=== PATIENT | female | born 1935 | race Hispanic/Latino ===

== ENCOUNTER 2016-11-25 16:49 | Inpatient (IN) | payer OTHER ==
[~2016-11-25] VITALS: Ht 149.9 cm; Wt 55.9 kg
[~2016-11-25 16:49] MED LIST: ADULT LOW DOSE81 M1 PO; ALBUTEROL SULF8.5 GM IH; ALENDRONATE SOD70 MG PO; AMLODIPINE BESYL5 MG PO; APRESOLINE25 MG PO; ASPIR-LOW81 MG PO; ASPIR-TRIN325 M1 PO; AUGMENTIN875 MG PO; BENZONATATE200 MG PO; CALCIUM 600 +1 EAC1 PO; CALCIUM 600 MG1 EACH PO; CALTRATE 600 +1 EACH PO; CATAPRES0.2 MG PO; CHILD ASPIRIN81 M1 PO; CINNAMON500 MG PO; CIPROFLOXACIN500 M1 PO; CLONIDINE HCL0.1 MG PO; COLACE50 MG PO; CRESTOR40 MG; CRESTOR40 MG PO; CYCLOBENZAPRINE10 MG PO; DOXYCYCLINE HY100 MG PO; FLEXERIL10 MG PO; FLEXERIL5 MG PO; FLONASE16 G1 BOTH NARES; FLOVENT 44120 INHALA IH; FLUTICASONE PRO16 GM BOTH NARES; FOSAMAX70 MG PO; GLIPIZIDE XL10 MG PO; GLUCOPHAGE1000 MG PO; GLUCOTROL XL10 MG PO; GLUCOTROL10 MG PO; HYDROCHLOROTH12.5 M3 PO; HYDROCODON-ACE1 EACH PO; INDERAL LA80 MG PO; LEVOTHYROXINE100 MCG PO; LEVOTHYROXINE137 MCG PO; LISINOPRIL40 MG PO; LOPRESSOR25 MG PO; MACRODANTIN100 MG PO; METFORMIN HCL1000 M1 PO; METOPROLOL SUCC25 MG PO; MOMETASONE FURO17 GM BOTH NARES; MULTI-DAY VITA1 EACH PO; NEURONTIN300 MG PO; NIFEDIPINE ER30 MG PO; NORCO 5/3251 TABLET PO; NORTRIPTYLINE H10 MG PO; NORVASC10 M1 PO; NORVASC10 MG PO; OLOPATADINE HCL5 ML BOTH EYES; OXYCODONE HCL5 MG PO; PATANOL OP100 DROP/5 BOTH EYES; PERCOCET 5/31 TABLET PO; PREDNISONE10 MG PO; PRINIVIL20 MG PO; PRINIVIL5 MG PO; PROAIR HFA8.5 GM IH; REQUIP0.25 MG PO; REQUIP1 MG PO; RESTASIS 01 DROP/0.4 BOTH EYES; ROPINIROLE HC0.25 MG PO; ROPINIROLE HCL1 MG PO; SENNA8.6 MG PO; SENOKOT,SENN1 TABLE1; SPECTRAVITE SE1 EACH PO; SYMBICORT60 INHALA1 IH; SYNTHROID125 MCG PO; SYNTHROID137 MCG PO; TESSALON PERLE100 MG PO; TESSALON200 MG PO; Toprol XL PO; VESICARE10 MG PO; VESICARE5 MG PO; VIBRAMYCIN100 MG PO; VICODIN,LORT1 TABLET PO; VITAMIN D2400 UNIT PO; VITAMIN D31000 UNI2; VITAMIN D31000 UNI2 PO; VITAMIN D31000 UNIT PO; Vitamin D PO
[2016-11-25 17:46] LABS: HEMATOCRIT 35.8 % (36.0-46.0); MCH 30.1 PG (29.0-34.0); MCHC 33.8 G/DL (30.0-36.0); MCV 89.1 FL (83-99); MEAN PLAT.VOLUME 9.7 uM^3 (9.5-12.4); PLATELET COUNT 358 K/uL (156-360); RBC DIS.WIDTH-SD 41.5 % (39-53); RED BLOOD COUNT 4.02 M/uL (3.80-5.20); WHITE BLOOD COUNT 25.4 K/uL (4.1-10.2)
[2016-11-25 18:09] LABS: CHLORIDE 96 mEq/L (99-109); POTASSIUM 3.6 mEq/L (3.7-5.4); SODIUM 133 mEq/L (136-147)
[2016-11-25 18:12] LABS: ANION GAP 16 MEQ/L (2-14)
[2016-11-25 18:14] LABS: GFR ESTIMATE (CALCULATED) 33 mL/min/
[2016-11-25 18:15] LABS: UREA NITROGEN (BUN) 25 mg/dL (9-23)
[2016-11-25 18:16] LABS: TROP-I INTERPRETATION NEGATIVE; TROPONIN-I < 0.01 ng/mL (0.0-0.30)
[2016-11-25 18:33] LABS: GLUCOSE 777 mg/dL (70-99)
[2016-11-25 21:12] LABS: CARBON DIOXIDE (BICARBONATE) 27.3 MEQ/L (20-31)
[2016-11-25] MEDS ORDERED: GLIPIZIDE XL10 MG PO (23:01)
[2016-11-25] MEDS ORDERED: LISINOPRIL20 MG PO (23:01)
[2016-11-25] MEDS ORDERED: NORTRIPTYLINE H10 MG PO (23:02)
[2016-11-25] MEDS ORDERED: LEVO-T100 MCG PO (23:03)
[2016-11-25] MEDS ORDERED: FLOVENT 11120 INHALA IH (23:03)
[2016-11-25] MEDS ORDERED: ROSUVASTATIN CA40 MG PO (23:04)
[2016-11-25] MEDS ORDERED: REQUIP1 MG PO (23:04)
[2016-11-25] MEDS ORDERED: CALCIUM 600 +1 EAC4 PO (23:05)
[2016-11-25] MEDS ORDERED: LO-DOSE ASPIRIN81 M2 PO (23:05)
[2016-11-25 23:59] VITALS: BP 144/66
[2016-11-26 04:16] VITALS: BP 126/57
[2016-11-26 06:21] LABS: HEMATOCRIT 30.3 % (36.0-46.0); MCH 30.7 PG (29.0-34.0); MCV 90.2 FL (83-99); MEAN PLAT.VOLUME 9.9 uM^3 (9.5-12.4); PLATELET COUNT 265 K/uL (156-360); RBC DIS.WIDTH-CV 13.4 % (11.8-14.6); RBC DIS.WIDTH-SD 44.3 % (39-53); RED BLOOD COUNT 3.36 M/uL (3.80-5.20); WHITE BLOOD COUNT 22.3 K/uL (4.1-10.2)
[2016-11-26 07:01] LABS: POINT-OF-CARE METER ID UU14149397
[2016-11-26 07:12] LABS: ANION GAP 10 MEQ/L (2-14); CHLORIDE 101 MEQ/L (99-109); POTASSIUM 2.9 MEQ/L (3.7-5.4); SAMPLE HEMOLYSIS CHECK 0; SAMPLE ICTERIC CHECK 0; SAMPLE LIPEMIA CHECK 0; SODIUM 133 MEQ/L (136-147); UREA NITROGEN (BUN) 19 mg/dL (9-23)
[2016-11-26 07:15] LABS: GFR ESTIMATE (CALCULATED) 57 mL/min/; GLUCOSE 428 mg/dL (70-99)
[2016-11-26 07:48] LABS: EOSINOPHIL (%) 0 % (0-5); HEMATOLOGY COMMENT 1 SMEAR COMPATIBLE; IMMATURE GRANULOCYTE COUNT 0.2 K/uL; LYMPHOCYTE COUNT 0.9 K/uL (1.0-2.8); MONOCYTE (%) 4.9 % (3-12); MONOCYTE COUNT 1.1 K/uL (0-0.8); NEUTROPHIL (%) 89.9 % (45-76); PLAT.SUFFICIENCY ADEQUATE; USER ID SDF
[2016-11-26 08:05] VITALS: BP 133/63
[2016-11-26 08:42] LABS: POINT-OF-CARE METER ID UU14100415
[2016-11-26 12:09] LABS: POINT-OF-CARE METER ID UU14149397
[2016-11-26 12:16] LABS: ANION GAP 10 MEQ/L (2-14); CHLORIDE 100 MEQ/L (99-109); GFR ESTIMATE (CALCULATED) > 59 mL/min/; GLUCOSE 395 mg/dL (70-99); SAMPLE HEMOLYSIS CHECK 0; SAMPLE ICTERIC CHECK 0; SAMPLE LIPEMIA CHECK 0; SODIUM 130 MEQ/L (136-147); UREA NITROGEN (BUN) 17 mg/dL (9-23)
[2016-11-26 12:52] LABS: POTASSIUM 3.6 MEQ/L (3.7-5.4)
[2016-11-26 13:53] LABS: Estimated Average Glucose 220 mg/dL (70-123); HEMOGLOBIN A1c (GLYCOHEMOGLOB) 9.3 % HGB (Below 5.7)
[2016-11-26 16:24] VITALS: BP 125/60
[2016-11-26 16:54] LABS: POINT-OF-CARE METER ID UU14149397
[2016-11-26 22:05] LABS: POINT-OF-CARE METER ID UU13113717
[2016-11-26 23:44] VITALS: BP 145/64
[2016-11-27 05:48] LABS: HEMATOCRIT 32.3 % (36.0-46.0); MCH 30.7 PG (29.0-34.0); MCHC 33.7 G/DL (30.0-36.0); MEAN PLAT.VOLUME 9.7 uM^3 (9.5-12.4); PLATELET COUNT 291 K/uL (156-360); RBC DIS.WIDTH-CV 13.7 % (11.8-14.6); RBC DIS.WIDTH-SD 45.7 % (39-53); RED BLOOD COUNT 3.55 M/uL (3.80-5.20); WHITE BLOOD COUNT 22.3 K/uL (4.1-10.2)
[2016-11-27 06:13] LABS: EOSINOPHIL (%) 0.8 % (0-5); EOSINOPHIL COUNT 0.2 K/uL (0-0.3); IMMATURE GRANULOCYTE (%) 0.9 % (0.0-0.7); IMMATURE GRANULOCYTE COUNT 0.2 K/uL; LYMPHOCYTE COUNT 0.9 K/uL (1.0-2.8); MONOCYTE (%) 3.9 % (3-12); MONOCYTE COUNT 0.9 K/uL (0-0.8); NEUTROPHIL (%) 90.4 % (45-76); NEUTROPHIL COUNT 20.2 K/uL (1.8-6.4)
[2016-11-27 06:14] LABS: POINT-OF-CARE METER ID UU14149397
[2016-11-27 06:22] LABS: ANION GAP 11 MEQ/L (2-14); CHLORIDE 105 MEQ/L (99-109); GFR ESTIMATE (CALCULATED) > 59 mL/min/; POTASSIUM 3.7 MEQ/L (3.7-5.4); SAMPLE HEMOLYSIS CHECK 0; SAMPLE ICTERIC CHECK 0; SAMPLE LIPEMIA CHECK 0; SODIUM 136 MEQ/L (136-147); UREA NITROGEN (BUN) 15 mg/dL (9-23)
[2016-11-27 06:24] LABS: GLUCOSE 196 mg/dL (70-99)
[2016-11-27 07:24] VITALS: BP 126/71
[2016-11-27 07:48] LABS: HEMATOLOGY COMMENT 1 SMEAR COMPATIBLE; PLAT.SUFFICIENCY ADEQUATE
[2016-11-27 10:35] LABS: INFLUENZA A VIRAL ANTIGEN NEGATIVE; INFLUENZA B VIRAL ANTIGEN NEGATIVE
[2016-11-27 11:14] LABS: INTERNAL CONTROL VALID? YES
[2016-11-27 11:47] LABS: C DIFF TOXIN NEGATIVE (NEGATIVE)
[2016-11-27 11:55] LABS: PROBE CHECK PASS; SPECIMEN PROCESSING CONTROL PASS
[2016-11-27 12:30] LABS: TROP-I INTERPRETATION NEGATIVE; TROPONIN-I < 0.01 ng/mL (0.0-0.30)
[2016-11-27 16:46] LABS: ADD MIUA? YES; BILIRUBIN NEGATIVE; BLOOD TRACE; COLOR YELLOW ((YELLOW)); GLUCOSE (STRIP) 500; KETONES NEGATIVE; LEUKOCYTES NEGATIVE; NITRITE NEGATIVE; PROTEIN (STRIP) 30; SPECIFIC GRAVITY 1.015 (1.000-1.030)
[2016-11-27 17:14] VITALS: BP 131/65
[2016-11-27 17:15] LABS: POINT-OF-CARE METER ID UU14149397
[2016-11-27 17:16] LABS: AMORPHOUS URATES CRYSTALS 1+; BACTERIA NONE SEEN; CASTS NONE SEEN /LPF; CRYSTALS PRESENT; EPITHELIAL CELLS RARE; MUCUS NONE SEEN; RED BLOOD CELLS NONE SEEN /HPF (0-5); UCUL ADDED? NO; WHITE BLOOD CELLS NONE SEEN /HPF (0-5)
[2016-11-28 00:02] VITALS: BP 158/71
[2016-11-28 05:10] LABS: EOSINOPHIL (%) 1.5 % (0-5); EOSINOPHIL COUNT 0.3 K/uL (0-0.3); IMMATURE GRANULOCYTE (%) 0.9 % (0.0-0.7); IMMATURE GRANULOCYTE COUNT 0.2 K/uL; LYMPHOCYTE COUNT 0.8 K/uL (1.0-2.8); MCH 29.9 PG (29.0-34.0); MCHC 33.2 G/DL (30.0-36.0); MCV 90.1 FL (83-99); MEAN PLAT.VOLUME 9.7 uM^3 (9.5-12.4); MONOCYTE (%) 4.9 % (3-12); MONOCYTE COUNT 0.9 K/uL (0-0.8); NEUTROPHIL (%) 88.5 % (45-76); NEUTROPHIL COUNT 16.4 K/uL (1.8-6.4); PLATELET COUNT 290 K/uL (156-360); RBC DIS.WIDTH-CV 14.1 % (11.8-14.6); RBC DIS.WIDTH-SD 46.5 % (39-53); RED BLOOD COUNT 3.44 M/uL (3.80-5.20); WHITE BLOOD COUNT 18.6 K/uL (4.1-10.2)
[2016-11-28 05:53] LABS: ANION GAP 10 MEQ/L (2-14); CHLORIDE 102 MEQ/L (99-109); GFR ESTIMATE (CALCULATED) > 59 mL/min/; GLUCOSE 222 mg/dL (70-99); POTASSIUM 3.2 MEQ/L (3.7-5.4); SAMPLE HEMOLYSIS CHECK 0; SAMPLE ICTERIC CHECK 0; SAMPLE LIPEMIA CHECK 0; SODIUM 132 MEQ/L (136-147); UREA NITROGEN (BUN) 11 mg/dL (9-23)
[2016-11-28 06:41] LABS: POINT-OF-CARE METER ID UU14149397
[2016-11-28 08:01] VITALS: BP 146/68
[2016-11-28 16:04] VITALS: BP 142/72
[2016-11-28 19:37] VITALS: BP 179/76
[2016-11-28 23:44] VITALS: BP 145/72
[2016-11-29 04:04] VITALS: BP 147/70
[2016-11-29 06:03] LABS: EOSINOPHIL (%) 1.6 % (0-5); HEMATOCRIT 31.6 % (36.0-46.0); MCH 30.6 PG (29.0-34.0); MCHC 33.9 G/DL (30.0-36.0); MCV 90.3 FL (83-99); MEAN PLAT.VOLUME 9.7 uM^3 (9.5-12.4); MONOCYTE (%) 6.4 % (3-12); NEUTROPHIL (%) 82.7 % (45-76); PLATELET COUNT 336 K/uL (156-360); RBC DIS.WIDTH-CV 14.3 % (11.8-14.6); RBC DIS.WIDTH-SD 47.4 % (39-53); WHITE BLOOD COUNT 14.6 K/uL (4.1-10.2)
[2016-11-29 06:04] LABS: EOSINOPHIL COUNT 0.2 K/uL (0-0.3); IMMATURE GRANULOCYTE (%) 1.5 % (0.0-0.7); IMMATURE GRANULOCYTE COUNT 0.2 K/uL; LYMPHOCYTE COUNT 1.1 K/uL (1.0-2.8); MONOCYTE COUNT 0.9 K/uL (0-0.8)
[2016-11-29 06:21] LABS: ANION GAP 10 MEQ/L (2-14); CHLORIDE 104 MEQ/L (99-109); GFR ESTIMATE (CALCULATED) 57 mL/min/; GLUCOSE 149 mg/dL (70-99); MAGNESIUM 1.4 mg/dl (1.3-2.7); POTASSIUM 3.7 MEQ/L (3.7-5.4); SAMPLE HEMOLYSIS CHECK 0; SAMPLE ICTERIC CHECK 0; SAMPLE LIPEMIA CHECK 0; SODIUM 136 MEQ/L (136-147); UREA NITROGEN (BUN) 8 mg/dL (9-23)
[2016-11-29 06:54] LABS: POINT-OF-CARE METER ID UU13113717
[2016-11-29 08:08] VITALS: BP 122/68
[2016-11-29 11:25] VITALS: BP 118/72
[2016-11-29 16:03] VITALS: BP 160/74
[2016-11-29 17:10] LABS: POINT-OF-CARE METER ID UU13113717
[2016-11-29 19:53] VITALS: BP 156/74
[2016-11-29 23:54] VITALS: BP 139/64
[2016-11-30 03:33] VITALS: BP 116/57
[2016-11-30 05:35] LABS: HEMATOCRIT 28.7 % (36.0-46.0); MCH 30.1 PG (29.0-34.0); MCHC 33.4 G/DL (30.0-36.0); MEAN PLAT.VOLUME 9.3 uM^3 (9.5-12.4); PLATELET COUNT 310 K/uL (156-360); RBC DIS.WIDTH-SD 46.7 % (39-53); RED BLOOD COUNT 3.19 M/uL (3.80-5.20); WHITE BLOOD COUNT 11.2 K/uL (4.1-10.2)
[2016-11-30 06:25] LABS: ANION GAP 11 MEQ/L (2-14); CHLORIDE 105 MEQ/L (99-109); GFR ESTIMATE (CALCULATED) > 59 mL/min/; GLUCOSE 153 mg/dL (70-99); POTASSIUM 3.3 MEQ/L (3.7-5.4); SAMPLE HEMOLYSIS CHECK 0; SAMPLE ICTERIC CHECK 0; SAMPLE LIPEMIA CHECK 0; SODIUM 139 MEQ/L (136-147); UREA NITROGEN (BUN) 7 mg/dL (9-23)
[2016-11-30 06:46] LABS: POINT-OF-CARE METER ID UU13113717
[2016-11-30 07:54] LABS: MAGNESIUM 1.5 mg/dl (1.3-2.7)
[2016-11-30 08:21] VITALS: BP 142/65
[2016-11-30 11:24] LABS: POINT-OF-CARE METER ID UU13113717
[2016-11-30 11:52] VITALS: BP 141/64
[2016-11-30] MEDS ORDERED: LINEZOLID600 MG PO (12:34)
[2016-11-30 16:26] LABS: POINT-OF-CARE METER ID UU14149397
[2016-11-30 16:27] VITALS: BP 134/61
[2016-11-30 20:10] VITALS: BP 125/79
[2016-11-30 22:03] LABS: POINT-OF-CARE METER ID UU13113717
[2016-12-01] VITALS (7 sets, daily range): BP systolic 139–165; BP diastolic 64–87
[2016-12-01 06:55] LABS: HEMATOCRIT 29.1 % (36.0-46.0); MCH 30.4 PG (29.0-34.0); MCHC 33.3 G/DL (30.0-36.0); MCV 91.2 FL (83-99); MEAN PLAT.VOLUME 9.1 uM^3 (9.5-12.4); PLATELET COUNT 354 K/uL (156-360); RBC DIS.WIDTH-CV 14.2 % (11.8-14.6); RBC DIS.WIDTH-SD 47.6 % (39-53); RED BLOOD COUNT 3.19 M/uL (3.80-5.20); WHITE BLOOD COUNT 10.5 K/uL (4.1-10.2)
[2016-12-01 07:20] LABS: ANION GAP 7 MEQ/L (2-14); CHLORIDE 105 MEQ/L (99-109); GFR ESTIMATE (CALCULATED) > 59 mL/min/; GLUCOSE 136 mg/dL (70-99); POTASSIUM 3.4 MEQ/L (3.7-5.4); SAMPLE HEMOLYSIS CHECK 0; SAMPLE ICTERIC CHECK 0; SAMPLE LIPEMIA CHECK 0; SODIUM 138 MEQ/L (136-147); UREA NITROGEN (BUN) 6 mg/dL (9-23)
[2016-12-01 08:31] LABS: FERRITIN 879 NG/ML (10-291)
[2016-12-01 10:53] LABS: IRON 18 MCG/DL (35-150)
[2016-12-01 11:47] LABS: POINT-OF-CARE METER ID UU14149397
[2016-12-01 16:22] LABS: POINT-OF-CARE METER ID UU14149397
[2016-12-01 22:51] LABS: POINT-OF-CARE METER ID UU13113717
[2016-12-02 03:35] LABS: POINT-OF-CARE METER ID UU13113717
[2016-12-02 03:39] VITALS: BP 133/70
[2016-12-02 06:34] LABS: HEMATOCRIT 30.3 % (36.0-46.0); MCH 31.1 PG (29.0-34.0); MCV 91.5 FL (83-99); MEAN PLAT.VOLUME 9.1 uM^3 (9.5-12.4); PLATELET COUNT 359 K/uL (156-360); RBC DIS.WIDTH-CV 14.1 % (11.8-14.6); RED BLOOD COUNT 3.31 M/uL (3.80-5.20); WHITE BLOOD COUNT 9.7 K/uL (4.1-10.2)
[2016-12-02 06:56] LABS: ANION GAP 7 MEQ/L (2-14); CHLORIDE 104 MEQ/L (99-109); GFR ESTIMATE (CALCULATED) > 59 mL/min/; GLUCOSE 164 mg/dL (70-99); POTASSIUM 3.9 MEQ/L (3.7-5.4); SAMPLE HEMOLYSIS CHECK 0; SAMPLE ICTERIC CHECK 0; SAMPLE LIPEMIA CHECK 0; SODIUM 137 MEQ/L (136-147); UREA NITROGEN (BUN) 6 mg/dL (9-23)
[2016-12-02 07:01] LABS: POINT-OF-CARE METER ID UU14149397
[2016-12-02 08:09] VITALS: BP 138/82
[2016-12-02] MEDS ORDERED: SPIRIVA RESPIMAT4 GM IH (10:46)
[2016-12-02] MEDS ORDERED: NICOTINE PATCH1 EAC2 TD (10:46)
[2016-12-02] MEDS ORDERED: LINEZOLID600 MG PO (10:46)
[2016-12-02] MEDS ORDERED: FERROUS SULFAT325 MG PO (10:46)
[2016-12-02] MEDS ORDERED: DOCUSATE SODIU100 MG PO (10:46)
[2016-12-02] MEDS ORDERED: CEFTIN500 MG PO (10:46)
[2016-12-02 11:37] VITALS: BP 142/74
[2016-12-02 11:57] LABS: POINT-OF-CARE METER ID UU13113717
[2016-12-02 16:13] VITALS: BP 148/74
[2016-12-02 16:28] LABS: POINT-OF-CARE METER ID UU13113717
== END 2016-12-02 20:00 | disposition home or self-care (01) | DRG 871 ==
LOC: EME 16:49 → 3EAST 22:02 → EDOF 22:02 → 3EAST 23:42
PROVIDERS: Emergency Medicine; Hospitalist; Internal Medicine; Physician Assistant; Physician Assistant Medical; Student in an Organized Health Care Education/Training Program
DX: A41.02 Sepsis due to Methicillin resistant Staphylococcus aureus (principal); J96.01 Acute respiratory failure with hypoxia; J18.9 Pneumonia, unspecified organism; N17.9 Acute kidney failure, unspecified; E87.6 Hypokalemia; F17.200 Nicotine dependence, unspecified, uncomplicated; E11.65 Type 2 diabetes mellitus with hyperglycemia; A41.51 Sepsis due to Escherichia coli [E. coli]; I10 Essential (primary) hypertension; E86.0 Dehydration; E03.9 Hypothyroidism, unspecified; R19.7 Diarrhea, unspecified; D64.9 Anemia, unspecified; G43.901 Migraine, unspecified, not intractable, with status migrainosus; F03.90 Unspecified dementia, unspecified severity, without behavioral disturbance, psychotic disturbance, mood disturbance, and anxiety; E83.51 Hypocalcemia; E88.09 Other disorders of plasma-protein metabolism, not elsewhere classified
CPT/HCPCS: 71010; 71020; 80048; 80048 91; 80202; 81003; 82009; 82040; 82272; 82607; 82728; 82746; 82803; 82948; 83036; 83540; 83605; 83630; 83735; 84466; 84484; 85025; 85027; 87040; 87070; 87077; 87147; 87177; 87186; 87205; 87449; 87493; 87502; 87506; 87801; 93005; 94640; 94640 76; 94667; 94668; 94760; 94799; 97530 GO; 97530 GP; 99202; 99281; 99285; J0360; J0456; J0610; J0696; J1644; J1815; J2405; J2543; J3370; J3475; J3480; J7030; J7050; S0028

== ENCOUNTER 2017-05-01 11:29 | Observation (INO) | payer OTHER ==
[~2017-05-01] VITALS: Ht 147.3 cm; Wt 63.9 kg
[~2017-05-01 11:29] MED LIST changes: +CALCIUM 600 +1 EAC4 PO; +CEFTIN500 MG PO; +DOCUSATE SODIU100 MG PO; +FERROUS SULFAT325 MG PO; +FLOVENT 11120 INHALA IH; +LEVO-T100 MCG PO; +LINEZOLID600 MG PO; +LISINOPRIL20 MG PO; +LO-DOSE ASPIRIN81 M2 PO; +NICOTINE PATCH1 EAC2 TD; +ROSUVASTATIN CA40 MG PO; +SPIRIVA RESPIMAT4 GM IH
[2017-05-01] MEDS ORDERED: DIAZEPAM2 MG PO (12:05)
[2017-05-01] MEDS ORDERED: CARBAMAZEPINE100 MG PO (12:05)
[2017-05-01 12:34] LABS: MCH 30.4 PG (29.0-34.0); MCHC 33.3 G/DL (30.0-36.0); MCV 91.3 FL (83-99); MEAN PLAT.VOLUME 9.7 uM^3 (9.5-12.4); PLATELET COUNT 155 K/uL (156-360); RBC DIS.WIDTH-CV 12.3 % (11.8-14.6); RBC DIS.WIDTH-SD 41.3 % (39-53); RED BLOOD COUNT 4.38 M/uL (3.80-5.20); WHITE BLOOD COUNT 8.8 K/uL (4.1-10.2)
[2017-05-01 13:16] LABS: ANION GAP 8 MEQ/L (2-14); CHLORIDE 102 MEQ/L (99-109); GFR ESTIMATE (CALCULATED) > 59 mL/min/; GLUCOSE 218 mg/dL (70-99); POTASSIUM 4.9 MEQ/L (3.7-5.4); SAMPLE HEMOLYSIS CHECK 0; SAMPLE ICTERIC CHECK 0; SAMPLE LIPEMIA CHECK 0; SODIUM 138 MEQ/L (136-147); UREA NITROGEN (BUN) 19 mg/dL (9-23)
[2017-05-01 13:30] LABS: ADD MIUA? YES; BILIRUBIN NEGATIVE; BLOOD NEGATIVE; COLOR YELLOW ((YELLOW)); GLUCOSE (STRIP) NEGATIVE; KETONES NEGATIVE; LEUKOCYTES MODERATE; NITRITE POSITIVE; PROTEIN (STRIP) 30; SPECIFIC GRAVITY 1.006 (1.000-1.030); UROBILINOGEN 0.2 MG/DL (0.2-1.0)
[2017-05-01 13:36] LABS: BACTERIA 2+ /HPF; EPITHELIAL CELLS RARE /HPF; MUCUS NONE SEEN /LPF; RED BLOOD CELLS 0-5 /HPF (0-5); UCUL ADDED? YES; WHITE BLOOD CELLS 15-20 /HPF (0-5)
[2017-05-01] MEDS ORDERED: LO-DOSE ASPIRIN81 M2 PO (15:52)
[2017-05-01] MEDS ORDERED: ZYRTEC10 M2 PO (15:54)
[2017-05-01] MEDS ORDERED: FOSAMAX70 MG PO (15:56)
[2017-05-01] MEDS ORDERED: DAILY VALUE1 EACH PO (15:57)
[2017-05-01] MEDS ORDERED: CINNAMON500 MG PO (15:58)
[2017-05-01 17:00] VITALS: BP 166/78
[2017-05-01 20:00] VITALS: BP 153/70
[2017-05-02] VITALS: BP 181/80
[2017-05-02 04:00] VITALS: BP 155/60
[2017-05-02 06:05] LABS: HEMATOCRIT 38.3 % (36.0-46.0); MCH 31.2 PG (29.0-34.0); MCHC 33.9 G/DL (30.0-36.0); MCV 91.8 FL (83-99); MEAN PLAT.VOLUME 9.8 uM^3 (9.5-12.4); PLATELET COUNT 155 K/uL (156-360); RBC DIS.WIDTH-CV 12.6 % (11.8-14.6); RBC DIS.WIDTH-SD 42.4 % (39-53); RED BLOOD COUNT 4.17 M/uL (3.80-5.20)
[2017-05-02 06:07] LABS: ANION GAP 8 MEQ/L (2-14); CHLORIDE 104 MEQ/L (99-109); GFR ESTIMATE (CALCULATED) 57 mL/min/; GLUCOSE 182 mg/dL (70-99); SAMPLE HEMOLYSIS CHECK 0; SAMPLE ICTERIC CHECK 0; SAMPLE LIPEMIA CHECK 0; SODIUM 141 MEQ/L (136-147); UREA NITROGEN (BUN) 18 mg/dL (9-23)
[2017-05-02 06:40] LABS: POTASSIUM 3.9 MEQ/L (3.7-5.4)
[2017-05-02 07:17] VITALS: BP 171/79
[2017-05-02 08:15] VITALS: BP 171/79
[2017-05-02 11:30] VITALS: BP 181/77
[2017-05-02] MEDS ORDERED: CEFTIN500 MG PO (14:46)
[2017-05-02] MEDS ORDERED: TEGRETOL200 MG PO (14:46)
== END 2017-05-02 15:57 | disposition home or self-care (01) ==
LOC: EME 11:29 → 5WEST 16:04 → EDOF 16:04 → 5WEST 16:35
PROVIDERS: Emergency Medicine; Student in an Organized Health Care Education/Training Program
DX: G50.0 Trigeminal neuralgia (principal); R51 Headache; N39.0 Urinary tract infection, site not specified; F03.90 Unspecified dementia, unspecified severity, without behavioral disturbance, psychotic disturbance, mood disturbance, and anxiety; E11.65 Type 2 diabetes mellitus with hyperglycemia; Z79.84 Long term (current) use of oral hypoglycemic drugs; Z79.4 Long term (current) use of insulin; I10 Essential (primary) hypertension; I25.2 Old myocardial infarction; E03.9 Hypothyroidism, unspecified; E78.00 Pure hypercholesterolemia, unspecified; Z86.73 Personal history of transient ischemic attack (TIA), and cerebral infarction without residual deficits; J44.9 Chronic obstructive pulmonary disease, unspecified; F17.210 Nicotine dependence, cigarettes, uncomplicated; M81.0 Age-related osteoporosis without current pathological fracture
CPT/HCPCS: 70450; 70551; 80048; 81003; 85027; 87077; 87086; 87186; 93880; 99281; 99285; G0378; J0696; J1650; J7050

== ENCOUNTER 2017-09-13 14:13 | Inpatient (IN) | payer OTHER ==
[~2017-09-13] VITALS: Ht 154.9 cm; Wt 59.7 kg
[~2017-09-13 14:13] MED LIST changes: +CARBAMAZEPINE100 MG PO; +DAILY VALUE1 EACH PO; +DIAZEPAM2 MG PO; +TEGRETOL200 MG PO; +ZYRTEC10 M2 PO
[2017-09-13 15:04] LABS: MCHC 32.6 G/DL (30.0-36.0); MEAN PLAT.VOLUME 9.4 uM^3 (9.5-12.4); PLATELET COUNT 354 K/uL (156-360); RBC DIS.WIDTH-CV 12.1 % (11.8-14.6); RED BLOOD COUNT 3.37 M/uL (3.80-5.20); WHITE BLOOD COUNT 17.5 K/uL (4.1-10.2)
[2017-09-13 15:13] LABS: ADD MIUA? YES; BILIRUBIN NEGATIVE; BLOOD MODERATE; COLOR YELLOW ((YELLOW)); GLUCOSE (STRIP) >=500; KETONES NEGATIVE; LEUKOCYTES LARGE; NITRITE NEGATIVE; PROTEIN (STRIP) 100; SPECIFIC GRAVITY 1.017 (1.000-1.030); UROBILINOGEN 0.2 MG/DL (0.2-1.0)
[2017-09-13 15:16] LABS: CHLORIDE 92 mEq/L (99-109); POTASSIUM 3.9 mEq/L (3.7-5.4); SODIUM 123 mEq/L (136-147)
[2017-09-13 15:19] LABS: ANION GAP 12 MEQ/L (2-14)
[2017-09-13 15:22] LABS: GFR ESTIMATE (CALCULATED) 20 mL/min/
[2017-09-13 15:23] LABS: UREA NITROGEN (BUN) 39 mg/dL (9-23)
[2017-09-13 15:26] LABS: TROP-I INTERPRETATION NEGATIVE; TROPONIN-I < 0.01 ng/mL (0.0-0.30)
[2017-09-13 15:32] LABS: EPITHELIAL CELLS 2+ /HPF; WHITE BLOOD CELLS 30-40 /HPF (0-5); WHITE BLOOD CELLS CLUMP FEW /HPF (0-5)
[2017-09-13 15:33] LABS: BACTERIA 4+ /HPF
[2017-09-13 15:39] LABS: GLUCOSE 798 mg/dL (70-99)
[2017-09-13 16:41] LABS: BASE EXCESS -3.6 mEq/L (-3 to +3); BICARBONATE 20.1 mEq/L (22-26); CARBOXY HGB 1.3 % (0-5); PCO2 31 mm Hg (35-45); PO2 90 mm Hg (80-100); SITE L BRACHIAL; pH 7.42 (7.35-7.45)
[2017-09-13 16:42] LABS: COMMENTS - BLOOD GASES C+; DEVICE RA
[2017-09-13] MEDS ORDERED: REQUIP1 MG PO (19:47)
[2017-09-13] MEDS ORDERED: CRESTOR20 MG PO (19:48)
[2017-09-13 21:34] VITALS: BP 140/63
[2017-09-13 23:25] VITALS: BP 141/65
[2017-09-14 04:09] VITALS: BP 138/62
[2017-09-14 04:27] LABS: POINT-OF-CARE METER ID UU14174225
[2017-09-14 07:06] VITALS: BP 117/57
[2017-09-14 07:06] LABS: POINT-OF-CARE METER ID UU14188625
[2017-09-14 07:07] LABS: HEMATOCRIT 28.4 % (36.0-46.0); MCH 30.4 PG (29.0-34.0); MCHC 34.2 G/DL (30.0-36.0); MEAN PLAT.VOLUME 9.4 uM^3 (9.5-12.4); PLATELET COUNT 307 K/uL (156-360); RBC DIS.WIDTH-CV 11.8 % (11.8-14.6); RBC DIS.WIDTH-SD 38.1 % (39-53); RED BLOOD COUNT 3.19 M/uL (3.80-5.20); WHITE BLOOD COUNT 14.4 K/uL (4.1-10.2)
[2017-09-14 07:30] LABS: ALKALINE PHOSPHATASE 77 IU/L (3-129); ANION GAP 12 MEQ/L (2-14); CHLORIDE 103 MEQ/L (99-109); POTASSIUM 3.5 MEQ/L (3.7-5.4); SAMPLE HEMOLYSIS CHECK 0; SAMPLE ICTERIC CHECK 0; SAMPLE LIPEMIA CHECK 0; TOTAL BILIRUBIN 0.3 MG/DL (0.0-1.0); UREA NITROGEN (BUN) 32 mg/dL (9-23)
[2017-09-14 07:32] LABS: GFR ESTIMATE (CALCULATED) 25 mL/min/; GLUCOSE 340 mg/dL (70-99); SODIUM 134 MEQ/L (136-147)
[2017-09-14 11:00] VITALS: BP 109/59
[2017-09-14 11:54] LABS: POINT-OF-CARE METER ID UU14188625
[2017-09-14 14:22] LABS: Estimated Average Glucose 318 mg/dL (70-123); HEMOGLOBIN A1c (GLYCOHEMOGLOB) 12.7 % HGB (Below 5.7)
[2017-09-14 16:00] VITALS: BP 132/58
[2017-09-14 16:07] LABS: POINT-OF-CARE METER ID UU14100415
[2017-09-14 16:07] LABS: POINT-OF-CARE METER ID UU14174225
[2017-09-14 17:30] LABS: POINT-OF-CARE METER ID UU14174225
[2017-09-14 19:17] VITALS: BP 171/72
[2017-09-14 21:00] LABS: POINT-OF-CARE METER ID UU14188625; POINT-OF-CARE USER ID 603211116
[2017-09-14 23:44] VITALS: BP 125/58
[2017-09-15 03:20] LABS: POINT-OF-CARE METER ID UU13113717
[2017-09-15 03:30] VITALS: BP 132/60
[2017-09-15 07:13] LABS: POINT-OF-CARE METER ID UU14174225
[2017-09-15 07:56] VITALS: BP 122/64
[2017-09-15 08:08] VITALS: BP 136/63
[2017-09-15 08:38] LABS: HEMATOCRIT 28.5 % (36.0-46.0); MCHC 33.7 G/DL (30.0-36.0); MCV 89.1 FL (83-99); MEAN PLAT.VOLUME 8.8 uM^3 (9.5-12.4); PLATELET COUNT 339 K/uL (156-360); RBC DIS.WIDTH-CV 11.9 % (11.8-14.6); RBC DIS.WIDTH-SD 38.6 % (39-53)
[2017-09-15 10:55] VITALS: BP 122/72
[2017-09-15 12:29] LABS: POINT-OF-CARE METER ID UU13113717
[2017-09-15 12:31] VITALS: BP 132/66
[2017-09-15 13:38] LABS: ANION GAP 10 MEQ/L (2-14); CHLORIDE 109 MEQ/L (99-109); GFR ESTIMATE (CALCULATED) 25 mL/min/; POTASSIUM 3.1 MEQ/L (3.7-5.4); SAMPLE HEMOLYSIS CHECK 0; SAMPLE ICTERIC CHECK 0; SAMPLE LIPEMIA CHECK 0; SODIUM 140 MEQ/L (136-147); UREA NITROGEN (BUN) 25 mg/dL (9-23)
[2017-09-15 13:39] LABS: GLUCOSE 100 mg/dL (70-99)
[2017-09-15 18:01] LABS: POINT-OF-CARE METER ID UU13113717
[2017-09-15 18:05] VITALS: BP 153/67
[2017-09-15 20:07] LABS: ADD MIUA? YES; BILIRUBIN NEGATIVE; BLOOD SMALL; COLOR YELLOW ((YELLOW)); GLUCOSE (STRIP) NEGATIVE; KETONES NEGATIVE; LEUKOCYTES NEGATIVE; NITRITE NEGATIVE; PROTEIN (STRIP) NEGATIVE; SPECIFIC GRAVITY 1.009 (1.000-1.030); UROBILINOGEN 0.2 MG/DL (0.2-1.0)
[2017-09-15 20:47] LABS: BACTERIA RARE /HPF; EPITHELIAL CELLS RARE /HPF; MUCUS TRACE /LPF; RED BLOOD CELLS 0-5 /HPF (0-5); UCUL ADDED? NO; WHITE BLOOD CELLS 0-5 /HPF (0-5)
[2017-09-15 21:45] LABS: POINT-OF-CARE METER ID UU14188625
[2017-09-16] VITALS: BP 127/66
[2017-09-16 06:00] LABS: EOSINOPHIL (%) 0.5 % (0-5); EOSINOPHIL COUNT 0.1 K/uL (0-0.3); HEMATOCRIT 26.5 % (36.0-46.0); IMMATURE GRANULOCYTE (%) 0.7 % (0.0-0.7); IMMATURE GRANULOCYTE COUNT 0.1 K/uL; INSTRUMENT ABS NEUTROPHIL CT 12.9 K/uL; LYMPHOCYTE COUNT 0.8 K/uL (1.0-2.8); MCH 30.7 PG (29.0-34.0); MCHC 34.3 G/DL (30.0-36.0); MCV 89.5 FL (83-99); MEAN PLAT.VOLUME 9.1 uM^3 (9.5-12.4); MONOCYTE (%) 5.2 % (3-12); MONOCYTE COUNT 0.8 K/uL (0-0.8); NEUTROPHIL (%) 87.8 % (45-76); NEUTROPHIL COUNT 12.9 K/uL (1.8-6.4); PLATELET COUNT 288 K/uL (156-360); RBC DIS.WIDTH-CV 12.2 % (11.8-14.6); RBC DIS.WIDTH-SD 40.1 % (39-53); RED BLOOD COUNT 2.96 M/uL (3.80-5.20); WHITE BLOOD COUNT 14.7 K/uL (4.1-10.2)
[2017-09-16 06:45] LABS: ANION GAP 8 MEQ/L (2-14); CHLORIDE 111 MEQ/L (99-109); GFR ESTIMATE (CALCULATED) 27 mL/min/; POTASSIUM 3.5 MEQ/L (3.7-5.4); SAMPLE HEMOLYSIS CHECK 0; SAMPLE ICTERIC CHECK 0; SAMPLE LIPEMIA CHECK 0; SODIUM 139 MEQ/L (136-147); UREA NITROGEN (BUN) 20 mg/dL (9-23)
[2017-09-16 06:51] LABS: GLUCOSE 168 mg/dL (70-99)
[2017-09-16 07:36] LABS: POINT-OF-CARE METER ID UU14174225
[2017-09-16 07:43] VITALS: BP 145/67
[2017-09-16 12:58] LABS: POINT-OF-CARE METER ID UU13113717
[2017-09-16 17:36] VITALS: BP 143/65
[2017-09-16 18:16] LABS: POINT-OF-CARE METER ID UU14174225
[2017-09-16 20:27] LABS: POINT-OF-CARE METER ID UU13113717
[2017-09-17 00:06] VITALS: BP 183/77
[2017-09-17 06:59] LABS: EOSINOPHIL (%) 1.1 % (0-5); EOSINOPHIL COUNT 0.1 K/uL (0-0.3); HEMATOCRIT 29.4 % (36.0-46.0); IMMATURE GRANULOCYTE (%) 0.6 % (0.0-0.7); IMMATURE GRANULOCYTE COUNT 0.1 K/uL; INSTRUMENT ABS NEUTROPHIL CT 10.3 K/uL; LYMPHOCYTE COUNT 1.1 K/uL (1.0-2.8); MCH 30.9 PG (29.0-34.0); MCV 90.7 FL (83-99); MEAN PLAT.VOLUME 8.9 uM^3 (9.5-12.4); MONOCYTE (%) 5.9 % (3-12); MONOCYTE COUNT 0.7 K/uL (0-0.8); NEUTROPHIL (%) 83.5 % (45-76); NEUTROPHIL COUNT 10.3 K/uL (1.8-6.4); PLATELET COUNT 325 K/uL (156-360); RBC DIS.WIDTH-CV 12.5 % (11.8-14.6); RBC DIS.WIDTH-SD 41.5 % (39-53); RED BLOOD COUNT 3.24 M/uL (3.80-5.20); WHITE BLOOD COUNT 12.3 K/uL (4.1-10.2)
[2017-09-17 07:02] LABS: ANION GAP 8 MEQ/L (2-14); CHLORIDE 109 MEQ/L (99-109); GFR ESTIMATE (CALCULATED) 33 mL/min/; POTASSIUM 4.2 MEQ/L (3.7-5.4); SAMPLE HEMOLYSIS CHECK 0; SAMPLE ICTERIC CHECK 0; SAMPLE LIPEMIA CHECK 0; SODIUM 138 MEQ/L (136-147); UREA NITROGEN (BUN) 18 mg/dL (9-23)
[2017-09-17 07:03] LABS: GLUCOSE 114 mg/dL (70-99)
[2017-09-17 07:05] VITALS: BP 147/86
[2017-09-17 07:06] LABS: POINT-OF-CARE METER ID UU14174225
[2017-09-17 11:18] LABS: POINT-OF-CARE METER ID UU14188625
[2017-09-17 15:15] VITALS: BP 140/64
[2017-09-17 16:27] LABS: POINT-OF-CARE METER ID UU14174225
[2017-09-17 22:15] LABS: POINT-OF-CARE METER ID UU13113717
[2017-09-18 00:05] VITALS: BP 115/69
[2017-09-18 07:19] VITALS: BP 151/83
[2017-09-18 07:25] LABS: POINT-OF-CARE METER ID UU14174225
[2017-09-18 11:19] LABS: POINT-OF-CARE METER ID UU14188625
[2017-09-18 15:07] VITALS: BP 151/69
[2017-09-18 16:39] LABS: POINT-OF-CARE METER ID UU13113717
[2017-09-18 21:49] LABS: POINT-OF-CARE METER ID UU13113717
[2017-09-19 00:03] VITALS: BP 144/74
[2017-09-19 07:47] LABS: METH RESISTANT S AUREUS PCR NEGATIVE (NEGATIVE)
[2017-09-19 07:49] VITALS: BP 155/77
[2017-09-19 07:49] LABS: PROBE CHECK PASS; SPECIMEN PROCESSING CONTROL PASS
[2017-09-19 08:13] LABS: POINT-OF-CARE METER ID UU14174225
[2017-09-19 08:53] LABS: HEMATOCRIT 30.2 % (36.0-46.0); MCH 29.6 PG (29.0-34.0); MCHC 32.5 G/DL (30.0-36.0); MCV 91.2 FL (83-99); MEAN PLAT.VOLUME 8.4 uM^3 (9.5-12.4); PLATELET COUNT 403 K/uL (156-360); RBC DIS.WIDTH-CV 12.4 % (11.8-14.6); RBC DIS.WIDTH-SD 41.2 % (39-53); RED BLOOD COUNT 3.31 M/uL (3.80-5.20); WHITE BLOOD COUNT 8.4 K/uL (4.1-10.2)
[2017-09-19 09:25] LABS: ANION GAP 8 MEQ/L (2-14); CHLORIDE 108 MEQ/L (99-109); GFR ESTIMATE (CALCULATED) 42 mL/min/; GLUCOSE 131 mg/dL (70-99); POTASSIUM 3.8 MEQ/L (3.7-5.4); SAMPLE HEMOLYSIS CHECK 0; SAMPLE ICTERIC CHECK 0; SAMPLE LIPEMIA CHECK 0; SODIUM 141 MEQ/L (136-147); UREA NITROGEN (BUN) 19 mg/dL (9-23)
[2017-09-19 12:00] LABS: POINT-OF-CARE METER ID UU14188625
[2017-09-19 16:23] VITALS: BP 173/74
[2017-09-19 16:54] LABS: POINT-OF-CARE METER ID UU14174225
[2017-09-19 23:44] VITALS: BP 139/63
[2017-09-19 23:48] LABS: POINT-OF-CARE METER ID UU14188625
[2017-09-20 06:59] LABS: POINT-OF-CARE METER ID UU13113717
[2017-09-20 07:08] VITALS: BP 147/65
[2017-09-20 09:02] LABS: HEMATOCRIT 29.8 % (36.0-46.0); MCH 30.1 PG (29.0-34.0); MCHC 32.6 G/DL (30.0-36.0); MCV 92.5 FL (83-99); MEAN PLAT.VOLUME 8.4 uM^3 (9.5-12.4); PLATELET COUNT 370 K/uL (156-360); RBC DIS.WIDTH-CV 12.4 % (11.8-14.6); RBC DIS.WIDTH-SD 41.7 % (39-53); RED BLOOD COUNT 3.22 M/uL (3.80-5.20); WHITE BLOOD COUNT 8.2 K/uL (4.1-10.2)
[2017-09-20 09:29] LABS: ANION GAP 9 MEQ/L (2-14); CHLORIDE 107 MEQ/L (99-109); GFR ESTIMATE (CALCULATED) 46 mL/min/; GLUCOSE 113 mg/dL (70-99); POTASSIUM 3.6 MEQ/L (3.7-5.4); SAMPLE HEMOLYSIS CHECK 0; SAMPLE ICTERIC CHECK 0; SAMPLE LIPEMIA CHECK 0; SODIUM 140 MEQ/L (136-147); UREA NITROGEN (BUN) 17 mg/dL (9-23)
[2017-09-20 09:52] LABS: TROP-I INTERPRETATION NEGATIVE; TROPONIN-I < 0.01 ng/mL (0.0-0.30)
[2017-09-20 12:05] LABS: POINT-OF-CARE METER ID UU14174225
[2017-09-20 15:07] VITALS: BP 184/77
[2017-09-20 16:47] LABS: POINT-OF-CARE METER ID UU13113717
[2017-09-20 22:16] LABS: POINT-OF-CARE METER ID UU13113717
[2017-09-21 00:30] VITALS: BP 142/65
[2017-09-21 06:35] LABS: HEMATOCRIT 30.2 % (36.0-46.0); MCH 29.8 PG (29.0-34.0); MCHC 32.5 G/DL (30.0-36.0); MCV 91.8 FL (83-99); MEAN PLAT.VOLUME 8.1 uM^3 (9.5-12.4); PLATELET COUNT 403 K/uL (156-360); RBC DIS.WIDTH-CV 12.2 % (11.8-14.6); RED BLOOD COUNT 3.29 M/uL (3.80-5.20); WHITE BLOOD COUNT 6.5 K/uL (4.1-10.2)
[2017-09-21 07:00] VITALS: BP 159/72
[2017-09-21 07:01] LABS: POINT-OF-CARE METER ID UU13113717
[2017-09-21 11:14] LABS: POINT-OF-CARE METER ID UU13113717
[2017-09-21 11:59] LABS: POINT-OF-CARE METER ID UU14174225
[2017-09-21 15:08] VITALS: BP 144/80
[2017-09-21 16:24] LABS: POINT-OF-CARE METER ID UU14174225
[2017-09-21 21:18] LABS: POINT-OF-CARE METER ID UU14188625
[2017-09-22] VITALS: BP 174/72
[2017-09-22 06:17] LABS: HEMATOCRIT 29.7 % (36.0-46.0); MCH 30.2 PG (29.0-34.0); MCHC 32.7 G/DL (30.0-36.0); MCV 92.5 FL (83-99); MEAN PLAT.VOLUME 8.2 uM^3 (9.5-12.4); PLATELET COUNT 359 K/uL (156-360); RBC DIS.WIDTH-CV 12.4 % (11.8-14.6); RBC DIS.WIDTH-SD 41.5 % (39-53); RED BLOOD COUNT 3.21 M/uL (3.80-5.20); WHITE BLOOD COUNT 6.6 K/uL (4.1-10.2)
[2017-09-22 06:49] LABS: ANION GAP 6 MEQ/L (2-14); CHLORIDE 109 MEQ/L (99-109); GFR ESTIMATE (CALCULATED) > 59 mL/min/; GLUCOSE 86 mg/dL (70-99); POTASSIUM 3.7 MEQ/L (3.7-5.4); SAMPLE HEMOLYSIS CHECK 0; SAMPLE ICTERIC CHECK 0; SAMPLE LIPEMIA CHECK 0; SODIUM 142 MEQ/L (136-147); UREA NITROGEN (BUN) 10 mg/dL (9-23)
[2017-09-22 07:00] VITALS: BP 165/70
[2017-09-22 08:30] LABS: POINT-OF-CARE METER ID UU14174225
[2017-09-22 12:14] LABS: POINT-OF-CARE METER ID UU13113717
[2017-09-22 16:01] VITALS: BP 146/76
[2017-09-22 21:39] LABS: POINT-OF-CARE METER ID UU14174225
[2017-09-22 23:36] VITALS: BP 152/82
[2017-09-23 05:08] LABS: POINT-OF-CARE METER ID UU13113717
[2017-09-23 07:20] VITALS: BP 132/80
[2017-09-23 07:49] LABS: POINT-OF-CARE METER ID UU13113717
[2017-09-23 11:00] VITALS: BP 142/78
[2017-09-23 12:20] LABS: POINT-OF-CARE METER ID UU14188625
[2017-09-23 16:25] VITALS: BP 140/66
[2017-09-23 17:43] LABS: POINT-OF-CARE METER ID UU14174225
[2017-09-23 21:47] LABS: POINT-OF-CARE METER ID UU13113717
[2017-09-23 23:44] VITALS: BP 121/71
[2017-09-24 03:54] LABS: POINT-OF-CARE METER ID UU14174225
[2017-09-24 06:21] LABS: HEMATOCRIT 29.5 % (36.0-46.0); MCH 29.5 PG (29.0-34.0); MCHC 32.2 G/DL (30.0-36.0); MCV 91.6 FL (83-99); MEAN PLAT.VOLUME 8.5 uM^3 (9.5-12.4); PLATELET COUNT 352 K/uL (156-360); RBC DIS.WIDTH-CV 12.7 % (11.8-14.6); RBC DIS.WIDTH-SD 41.5 % (39-53); RED BLOOD COUNT 3.22 M/uL (3.80-5.20); WHITE BLOOD COUNT 6.4 K/uL (4.1-10.2)
[2017-09-24 06:49] LABS: ANION GAP 7 MEQ/L (2-14); CHLORIDE 111 MEQ/L (99-109); GFR ESTIMATE (CALCULATED) > 59 mL/min/; GLUCOSE 107 mg/dL (70-99); POTASSIUM 3.1 MEQ/L (3.7-5.4); SAMPLE HEMOLYSIS CHECK 0; SAMPLE ICTERIC CHECK 0; SAMPLE LIPEMIA CHECK 0; SODIUM 143 MEQ/L (136-147); UREA NITROGEN (BUN) 7 mg/dL (9-23)
[2017-09-24 08:15] VITALS: BP 145/67
[2017-09-24 10:12] LABS: POINT-OF-CARE METER ID UU13113717
[2017-09-24 14:50] LABS: POINT-OF-CARE METER ID UU13113717
[2017-09-24 16:35] VITALS: BP 131/60
[2017-09-24 17:56] LABS: POINT-OF-CARE METER ID UU14188625
[2017-09-24 21:53] LABS: POINT-OF-CARE METER ID UU13113717
[2017-09-24 23:44] VITALS: BP 143/80
[2017-09-25 07:08] LABS: ANION GAP 6 MEQ/L (2-14); CHLORIDE 115 MEQ/L (99-109); GFR ESTIMATE (CALCULATED) > 59 mL/min/; GLUCOSE 152 mg/dL (70-99); SAMPLE HEMOLYSIS CHECK 0; SAMPLE ICTERIC CHECK 0; SAMPLE LIPEMIA CHECK 0; SODIUM 145 MEQ/L (136-147); UREA NITROGEN (BUN) 6 mg/dL (9-23)
[2017-09-25 07:10] LABS: POTASSIUM 4.5 MEQ/L (3.7-5.4)
[2017-09-25] MEDS ORDERED: PROTONIX40 MG PO (07:51)
[2017-09-25] MEDS ORDERED: DOCUSATE SODIU100 MG PO (07:51)
[2017-09-25] MEDS ORDERED: REGLAN5 MG PO (07:51)
[2017-09-25] MEDS ORDERED: FIORICET 50-301 EAC1 PO (07:51)
[2017-09-25] MEDS ORDERED: BENADRYL25 MG PO (07:51)
[2017-09-25] MEDS ORDERED: MIRTAZAPINE15 MG PO (07:51)
[2017-09-25] MEDS ORDERED: ZOFRAN4 MG PO (07:53)
[2017-09-25 07:54] VITALS: BP 150/66
[2017-09-25 08:18] LABS: POINT-OF-CARE METER ID UU14174225
[2017-09-25 12:01] LABS: POINT-OF-CARE METER ID UU13113717
[2017-09-25] MEDS ORDERED: CEFDINIR300 MG PO (12:41)
== END 2017-09-25 14:48 | disposition home health service (06) | DRG 690 ==
LOC: EME 14:13 → 5SOUTH 17:59 → EDOF 17:59 → ENRESERV 18:05 → CANRESERV 18:05 → ENRESERV 19:32 → 5SOUTH 20:29
PROVIDERS: Emergency Medicine; Hospitalist; Internal Medicine; Nurse Practitioner Adult Health; Physician Assistant; Physician Assistant Medical
PROC: 0DB68ZX Excision of Stomach, Via Natural or Artificial Opening Endoscopic, Diagnostic (ICD-10-PCS; principal; 2017-09-21)
DX: N30.00 Acute cystitis without hematuria (principal); E11.65 Type 2 diabetes mellitus with hyperglycemia; N28.89 Other specified disorders of kidney and ureter; F17.210 Nicotine dependence, cigarettes, uncomplicated; K21.9 Gastro-esophageal reflux disease without esophagitis; J44.9 Chronic obstructive pulmonary disease, unspecified; I10 Essential (primary) hypertension; G50.0 Trigeminal neuralgia; G25.81 Restless legs syndrome; F03.90 Unspecified dementia, unspecified severity, without behavioral disturbance, psychotic disturbance, mood disturbance, and anxiety; K44.9 Diaphragmatic hernia without obstruction or gangrene; R62.7 Adult failure to thrive; B96.20 Unspecified Escherichia coli [E. coli] as the cause of diseases classified elsewhere; F32.9 Major depressive disorder, single episode, unspecified; E78.5 Hyperlipidemia, unspecified; K59.00 Constipation, unspecified; E03.9 Hypothyroidism, unspecified; K29.70 Gastritis, unspecified, without bleeding; D64.9 Anemia, unspecified; G43.909 Migraine, unspecified, not intractable, without status migrainosus; E87.6 Hypokalemia; R19.7 Diarrhea, unspecified; E78.00 Pure hypercholesterolemia, unspecified; N20.0 Calculus of kidney; E87.1 Hypo-osmolality and hyponatremia; N17.9 Acute kidney failure, unspecified; Z86.73 Personal history of transient ischemic attack (TIA), and cerebral infarction without residual deficits; Z87.442 Personal history of urinary calculi; Z91.14 Patient's other noncompliance with medication regimen; Z79.84 Long term (current) use of oral hypoglycemic drugs; Z90.49 Acquired absence of other specified parts of digestive tract; Z90.710 Acquired absence of both cervix and uterus; Z79.4 Long term (current) use of insulin; Z91.19 Patient's noncompliance with other medical treatment and regimen; Z87.441 Personal history of nephrotic syndrome
CPT/HCPCS: 36600; 70450; 71020; 74176; 80048; 80053; 81003; 82803; 82948; 83036; 84484; 85014; 85018; 85025; 85027; 86850; 86900; 86901; 87077; 87086; 87186; 87641; 88305; 88342 TC; 90686; 93005; 97530 GO; 97530 GP; 99281; 99285; C9113; J0696; J1170; J1200; J1644; J1815; J2405; J2765; J7030; J7042; J7050

== ENCOUNTER 2018-04-07 07:46 | Emergency (ER) | payer OTHER ==
[~2018-04-07] VITALS: Ht 149.9 cm; Wt 67.2 kg
[~2018-04-07 07:46] MED LIST changes: +BENADRYL25 MG PO; +CEFDINIR300 MG PO; +CRESTOR20 MG PO; +FIORICET 50-301 EAC1 PO; +LISINOPRIL10 MG PO; +MIRTAZAPINE15 MG PO; +PROTONIX40 MG PO; +REGLAN5 MG PO; +ZOFRAN4 MG PO
[2018-04-07 08:24] LABS: MCH 31.2 PG (29.0-34.0); MCHC 33.3 G/DL (30.0-36.0); MCV 93.5 FL (83-99); PLATELET COUNT 156 K/uL (156-360); RBC DIS.WIDTH-CV 13.1 % (11.8-14.6); RBC DIS.WIDTH-SD 44.8 % (39-53); RED BLOOD COUNT 3.53 M/uL (3.80-5.20); WHITE BLOOD COUNT 4.7 K/uL (4.1-10.2)
[2018-04-07 08:32] LABS: CHLORIDE 107 mEq/L (99-109); POTASSIUM 3.8 mEq/L (3.7-5.4); PTT 29.2 SEC (25-37); SODIUM 142 mEq/L (136-147)
[2018-04-07 08:34] LABS: GLUCOSE 131 mg/dL (70-99)
[2018-04-07 08:38] LABS: GFR ESTIMATE (CALCULATED) 57 mL/min/
[2018-04-07 08:39] LABS: UREA NITROGEN (BUN) 14 mg/dL (9-23)
[2018-04-07] MEDS ORDERED: ULTRAM50 MG PO (09:59)
[2018-04-07 10:19] VITALS: BP 166/74
== END 2018-04-07 10:19 | disposition home or self-care (01) ==
LOC: EME 07:46
PROVIDERS: Nurse Practitioner Family
DX: M71.22 Synovial cyst of popliteal space [Baker], left knee (principal); M54.32 Sciatica, left side; D64.9 Anemia, unspecified; F03.90 Unspecified dementia, unspecified severity, without behavioral disturbance, psychotic disturbance, mood disturbance, and anxiety; E78.5 Hyperlipidemia, unspecified; F32.9 Major depressive disorder, single episode, unspecified; Z86.73 Personal history of transient ischemic attack (TIA), and cerebral infarction without residual deficits; Z72.0 Tobacco use; Z90.49 Acquired absence of other specified parts of digestive tract; Z90.710 Acquired absence of both cervix and uterus; Z79.82 Long term (current) use of aspirin; Z88.1 Allergy status to other antibiotic agents; Z88.8 Allergy status to other drugs, medicaments and biological substances
CPT/HCPCS: 80048; 85027; 85610; 85730; 93971; 99281; 99284

== ENCOUNTER 2018-04-30 23:03 | Emergency (ER) | payer OTHER ==
[~2018-04-30] VITALS: Ht 149.9 cm; Wt 66.6 kg
[~2018-04-30 23:03] MED LIST changes: +ULTRAM50 MG PO
[2018-05-01 00:31] LABS: HEMATOCRIT 35.4 % (36.0-46.0); HEMOGLOBIN 11.9 G/DL (11.9-15.5); MCH 31.4 PG (29.0-34.0); MCHC 33.6 G/DL (30.0-36.0); MCV 93.4 FL (83-99); PLATELET COUNT 195 K/uL (156-360); RBC DIS.WIDTH-SD 44.2 % (39-53); RED BLOOD COUNT 3.79 M/uL (3.80-5.20); WHITE BLOOD COUNT 9.3 K/uL (4.1-10.2)
[2018-05-01 00:39] LABS: ALBUMIN 4.3 g/dL (3.2-4.8); CHLORIDE 106 mEq/L (99-109); POTASSIUM 3.7 mEq/L (3.7-5.4); SODIUM 141 mEq/L (136-147)
[2018-05-01 00:41] LABS: GLUCOSE 162 mg/dL (70-99)
[2018-05-01 00:42] LABS: TOTAL PROTEIN 7.6 g/dL (6.4-8.3)
[2018-05-01 00:43] LABS: TOTAL BILIRUBIN 0.3 mg/dL (0.0-1.0)
[2018-05-01 00:45] LABS: ALKALINE PHOSPHATASE 47 IU/L (3-129); CREATININE 1.2 mg/dL (0.6-1.3); GFR ESTIMATE (CALCULATED) 46 mL/min/
[2018-05-01 00:46] LABS: UREA NITROGEN (BUN) 20 mg/dL (9-23)
[2018-05-01 00:47] LABS: AST (GOT) 30 IU/L (2-34)
[2018-05-01 00:48] LABS: ALT (GPT) 22 IU/L (3-49); LIPASE 17 U/L (1.0-51.0)
[2018-05-01 00:52] LABS: TROP-I INTERPRETATION NEGATIVE; TROPONIN-I < 0.01 ng/mL (0.0-0.30)
[2018-05-01] MEDS ORDERED: FLAGYL500 MG PO (02:03)
[2018-05-01] MEDS ORDERED: MIRALAX255 GM PO (02:03)
[2018-05-01 02:29] VITALS: BP 164/103
== END 2018-05-01 02:31 | disposition home or self-care (01) ==
LOC: EME 23:03
PROVIDERS: Emergency Medicine
DX: K62.89 Other specified diseases of anus and rectum (principal); E78.5 Hyperlipidemia, unspecified; F03.90 Unspecified dementia, unspecified severity, without behavioral disturbance, psychotic disturbance, mood disturbance, and anxiety; F32.9 Major depressive disorder, single episode, unspecified; Z86.73 Personal history of transient ischemic attack (TIA), and cerebral infarction without residual deficits; D64.9 Anemia, unspecified; Z79.84 Long term (current) use of oral hypoglycemic drugs; Z79.82 Long term (current) use of aspirin; F17.200 Nicotine dependence, unspecified, uncomplicated
CPT/HCPCS: 74177; 80053; 81003; 83690; 84484; 85027; 93005; 99281; 99285

== ENCOUNTER 2018-05-07 18:44 | Emergency (ER) | payer OTHER ==
[~2018-05-07] VITALS: Ht 149.9 cm; Wt 65.3 kg
[~2018-05-07 18:44] MED LIST changes: +FLAGYL500 MG PO; +MIRALAX255 GM PO
[2018-05-07 19:37] LABS: BASOPHIL (%) 0.6 % (0-1); BASOPHIL COUNT 0.1 K/uL (0-0.1); EOSINOPHIL (%) 4.7 % (0-5); EOSINOPHIL COUNT 0.4 K/uL (0-0.3); HEMATOCRIT 35.7 % (36.0-46.0); IMMATURE GRANULOCYTE (%) 0.3 % (0.0-0.7); LYMPHOCYTE (%) 17.9 % (15-42); LYMPHOCYTE COUNT 1.6 K/uL (1.0-2.8); MCH 31.2 PG (29.0-34.0); MCHC 33.6 G/DL (30.0-36.0); MCV 92.7 FL (83-99); MONOCYTE COUNT 0.7 K/uL (0-0.8); NEUTROPHIL (%) 68.5 % (45-76); PLATELET COUNT 201 K/uL (156-360); RBC DIS.WIDTH-CV 12.9 % (11.8-14.6); RBC DIS.WIDTH-SD 43.8 % (39-53); RED BLOOD COUNT 3.85 M/uL (3.80-5.20); WHITE BLOOD COUNT 8.7 K/uL (4.1-10.2)
[2018-05-07 19:43] LABS: INTER. NORMALIZED RATIO 1.1
[2018-05-07 19:45] LABS: PTT 29.1 SEC (25-37)
[2018-05-07 19:47] LABS: ALBUMIN 3.9 g/dL (3.2-4.8)
[2018-05-07 19:48] LABS: CHLORIDE 108 mEq/L (99-109); POTASSIUM 4.1 mEq/L (3.7-5.4); SODIUM 141 mEq/L (136-147)
[2018-05-07 19:50] LABS: GLUCOSE 189 mg/dL (70-99); TOTAL PROTEIN 7.1 g/dL (6.4-8.3)
[2018-05-07 19:52] LABS: TOTAL BILIRUBIN 0.3 mg/dL (0.0-1.0)
[2018-05-07 19:53] LABS: ALKALINE PHOSPHATASE 44 IU/L (3-129)
[2018-05-07 19:54] LABS: CREATININE 1.4 mg/dL (0.6-1.3); GFR ESTIMATE (CALCULATED) 38 mL/min/
[2018-05-07 19:55] LABS: AST (GOT) 28 IU/L (2-34); UREA NITROGEN (BUN) 24 mg/dL (9-23)
[2018-05-07 19:57] LABS: ALT (GPT) 18 IU/L (3-49); LIPASE 19 U/L (1.0-51.0)
[2018-05-07 21:38] VITALS: BP 123/64
== END 2018-05-07 21:38 | disposition home or self-care (01) ==
LOC: EME 18:44 → EXP 18:44
PROVIDERS: Physician Assistant
DX: K62.3 Rectal prolapse (principal); R42 Dizziness and giddiness; E78.5 Hyperlipidemia, unspecified; Z86.73 Personal history of transient ischemic attack (TIA), and cerebral infarction without residual deficits; Z79.82 Long term (current) use of aspirin; F17.200 Nicotine dependence, unspecified, uncomplicated
CPT/HCPCS: 74176; 80053; 81003; 83690; 85025; 85610; 85730; 86850; 86900; 86901; 99281; 99283

== ENCOUNTER 2018-05-24 10:43 | Inpatient (IN) | payer OTHER ==
[~2018-05-24] VITALS: Ht 139.7 cm; Wt 43.9 kg
[2018-05-24 11:25] LABS: BASOPHIL (%) 0.6 % (0-1); EOSINOPHIL (%) 4.7 % (0-5); EOSINOPHIL COUNT 0.3 K/uL (0-0.3); HEMATOCRIT 34.6 % (36.0-46.0); HEMOGLOBIN 11.7 G/DL (11.9-15.5); IMMATURE GRANULOCYTE (%) 0.3 % (0.0-0.7); LYMPHOCYTE (%) 21.9 % (15-42); LYMPHOCYTE COUNT 1.5 K/uL (1.0-2.8); MCH 31.1 PG (29.0-34.0); MCHC 33.8 G/DL (30.0-36.0); MONOCYTE (%) 8.1 % (3-12); MONOCYTE COUNT 0.6 K/uL (0-0.8); NEUTROPHIL (%) 64.4 % (45-76); NEUTROPHIL COUNT 4.5 K/uL (1.8-6.4); PLATELET COUNT 189 K/uL (156-360); RBC DIS.WIDTH-SD 43.8 % (39-53); RED BLOOD COUNT 3.76 M/uL (3.80-5.20)
[2018-05-24 11:32] LABS: INTER. NORMALIZED RATIO 1.1
[2018-05-24 11:34] LABS: PTT 27.3 SEC (25-37)
[2018-05-24 11:35] LABS: ALBUMIN 3.7 g/dL (3.2-4.8)
[2018-05-24 11:36] LABS: CHLORIDE 109 mEq/L (99-109); POTASSIUM 4.4 mEq/L (3.7-5.4); SODIUM 141 mEq/L (136-147)
[2018-05-24 11:38] LABS: GLUCOSE 157 mg/dL (70-99); TOTAL PROTEIN 6.8 g/dL (6.4-8.3)
[2018-05-24 11:40] LABS: TOTAL BILIRUBIN 0.3 mg/dL (0.0-1.0)
[2018-05-24 11:41] LABS: ALKALINE PHOSPHATASE 37 IU/L (3-129)
[2018-05-24 11:42] LABS: CREATININE 1.4 mg/dL (0.6-1.3); GFR ESTIMATE (CALCULATED) 38 mL/min/
[2018-05-24 11:43] LABS: AST (GOT) 23 IU/L (2-34); UREA NITROGEN (BUN) 17 mg/dL (9-23)
[2018-05-24 11:44] LABS: ALT (GPT) 19 IU/L (3-49)
[2018-05-24 16:56] VITALS: BP 138/69
[2018-05-24 20:00] VITALS: BP 138/65
[2018-05-25 00:32] VITALS: BP 115/54
[2018-05-25 04:16] VITALS: BP 131/56
[2018-05-25 06:49] LABS: HEMATOCRIT 32.3 % (36.0-46.0); HEMOGLOBIN 10.6 G/DL (11.9-15.5); MCH 30.8 PG (29.0-34.0); MCHC 32.8 G/DL (30.0-36.0); MCV 93.9 FL (83-99); PLATELET COUNT 182 K/uL (156-360); RBC DIS.WIDTH-CV 13.4 % (11.8-14.6); RBC DIS.WIDTH-SD 45.7 % (39-53); RED BLOOD COUNT 3.44 M/uL (3.80-5.20); WHITE BLOOD COUNT 6.3 K/uL (4.1-10.2)
[2018-05-25 07:15] LABS: ALBUMIN 3.1 G/DL (3.2-4.8); ALKALINE PHOSPHATASE 27 IU/L (3-129); ALT (GPT) 15 IU/L (3-49); AST (GOT) 22 IU/L (2-34); CHLORIDE 115 MEQ/L (99-109); POTASSIUM 4.3 MEQ/L (3.7-5.4); SODIUM 146 MEQ/L (136-147); TOTAL BILIRUBIN 0.3 MG/DL (0.0-1.0); TOTAL PROTEIN 5.5 G/DL (6.4-8.3); UREA NITROGEN (BUN) 12 mg/dL (9-23)
[2018-05-25 07:28] LABS: CREATININE 0.9 MG/DL (0.6-1.3); GFR ESTIMATE (CALCULATED) > 59 mL/min/; GLUCOSE 97 mg/dL (70-99)
[2018-05-25 07:44] VITALS: BP 134/63
[2018-05-25] MEDS ORDERED: REMERON15 M2 PO (11:20)
[2018-05-25] MEDS ORDERED: RHOPRESSA2.5 ML LEFT EYE (11:26)
[2018-05-25] MEDS ORDERED: DUREZOL 0.100 DROP/5 LEFT EYE (11:26)
[2018-05-25] MEDS ORDERED: LANTUS 10100 UNITS/ SC (11:27)
[2018-05-25] MEDS ORDERED: ZOFRAN4 MG PO (11:27)
[2018-05-25] MEDS ORDERED: ADVIL200 MG PO (11:28)
[2018-05-25] MEDS ORDERED: PROAIR RESPICL90 MCG IH (11:28)
[2018-05-25] MEDS ORDERED: TYLENOL325 M2 PO (11:28)
[2018-05-25] MEDS ORDERED: CRESTOR40 MG PO (11:55)
[2018-05-25 12:25] VITALS: BP 165/89
[2018-05-25 19:12] VITALS: BP 158/72
[2018-05-25 23:16] VITALS: BP 138/62
[2018-05-26 03:55] VITALS: BP 147/68
[2018-05-26 06:58] LABS: HEMATOCRIT 33.6 % (36.0-46.0); HEMOGLOBIN 11.1 G/DL (11.9-15.5); MCH 30.9 PG (29.0-34.0); MCV 93.6 FL (83-99); PLATELET COUNT 179 K/uL (156-360); RBC DIS.WIDTH-CV 13.2 % (11.8-14.6); RBC DIS.WIDTH-SD 45.3 % (39-53); RED BLOOD COUNT 3.59 M/uL (3.80-5.20)
[2018-05-26 07:21] VITALS: BP 156/70
[2018-05-26 08:58] LABS: CHLORIDE 109 MEQ/L (99-109); CREATININE 0.8 MG/DL (0.6-1.3); GFR ESTIMATE (CALCULATED) > 59 mL/min/; SODIUM 144 MEQ/L (136-147); UREA NITROGEN (BUN) 6 mg/dL (9-23)
[2018-05-26 09:03] LABS: GLUCOSE 150 mg/dL (70-99); POTASSIUM 3.4 MEQ/L (3.7-5.4)
[2018-05-26 11:31] VITALS: BP 143/67
[2018-05-26 15:56] VITALS: BP 149/71
[2018-05-26 19:04] VITALS: BP 114/56
[2018-05-27 00:22] VITALS: BP 148/66
[2018-05-27 03:46] VITALS: BP 165/72
[2018-05-27 06:12] LABS: HEMATOCRIT 32.4 % (36.0-46.0); HEMOGLOBIN 10.6 G/DL (11.9-15.5); MCH 30.5 PG (29.0-34.0); MCHC 32.7 G/DL (30.0-36.0); MCV 93.4 FL (83-99); PLATELET COUNT 181 K/uL (156-360); RBC DIS.WIDTH-CV 13.6 % (11.8-14.6); RBC DIS.WIDTH-SD 46.1 % (39-53); RED BLOOD COUNT 3.47 M/uL (3.80-5.20); WHITE BLOOD COUNT 4.9 K/uL (4.1-10.2)
[2018-05-27 06:37] LABS: CHLORIDE 112 MEQ/L (99-109); CREATININE 0.8 MG/DL (0.6-1.3); GFR ESTIMATE (CALCULATED) > 59 mL/min/; GLUCOSE 114 mg/dL (70-99); POTASSIUM 3.4 MEQ/L (3.7-5.4); SODIUM 143 MEQ/L (136-147); UREA NITROGEN (BUN) 5 mg/dL (9-23)
[2018-05-27 07:17] VITALS: BP 176/76
[2018-05-27 11:06] VITALS: BP 176/98
[2018-05-27 15:06] VITALS: BP 139/78
[2018-05-27 20:02] VITALS: BP 150/86
[2018-05-28 00:07] VITALS: BP 173/78
[2018-05-28 03:41] VITALS: BP 153/70
[2018-05-28 07:01] VITALS: BP 148/71
[2018-05-28 11:02] VITALS: BP 148/67
[2018-05-28 14:57] VITALS: BP 146/66
[2018-05-28 19:17] VITALS: BP 132/60
[2018-05-29 00:45] VITALS: BP 139/64
[2018-05-29 04:29] VITALS: BP 150/65
[2018-05-29 06:52] LABS: CHLORIDE 112 MEQ/L (99-109); CREATININE 0.8 MG/DL (0.6-1.3); GFR ESTIMATE (CALCULATED) > 59 mL/min/; GLUCOSE 126 mg/dL (70-99); POTASSIUM 3.3 MEQ/L (3.7-5.4); SODIUM 144 MEQ/L (136-147); UREA NITROGEN (BUN) 5 mg/dL (9-23)
[2018-05-29 07:38] VITALS: BP 150/67
[2018-05-29 19:06] VITALS: BP 135/61
[2018-05-29 23:55] VITALS: BP 130/62
[2018-05-30 03:25] VITALS: BP 115/55
[2018-05-30 04:44] VITALS: BP 112/67
[2018-05-30 08:08] VITALS: BP 121/58
[2018-05-30 12:55] VITALS: BP 135/64
[2018-05-30 15:50] VITALS: BP 131/59
[2018-05-30 19:37] VITALS: BP 127/61
[2018-05-31] VITALS (12 sets, daily range): BP systolic 118–174; BP diastolic 58–85
[2018-05-31 06:43] LABS: CHLORIDE 112 MEQ/L (99-109); CREATININE 0.7 MG/DL (0.6-1.3); GFR ESTIMATE (CALCULATED) > 59 mL/min/; GLUCOSE 165 mg/dL (70-99); POTASSIUM 3.1 MEQ/L (3.7-5.4); SODIUM 143 MEQ/L (136-147); UREA NITROGEN (BUN) 5 mg/dL (9-23)
[2018-05-31 06:57] LABS: BASOPHIL (%) 0.3 % (0-1); EOSINOPHIL (%) 2.8 % (0-5); EOSINOPHIL COUNT 0.2 K/uL (0-0.3); HEMATOCRIT 22.4 % (36.0-46.0); IMMATURE GRANULOCYTE (%) 0.3 % (0.0-0.7); LYMPHOCYTE (%) 16.2 % (15-42); LYMPHOCYTE COUNT 1.1 K/uL (1.0-2.8); MCH 30.3 PG (29.0-34.0); MCHC 32.1 G/DL (30.0-36.0); MCV 94.1 FL (83-99); MONOCYTE (%) 8.2 % (3-12); MONOCYTE COUNT 0.6 K/uL (0-0.8); NEUTROPHIL (%) 72.2 % (45-76); NEUTROPHIL COUNT 5.1 K/uL (1.8-6.4); PLATELET COUNT 156 K/uL (156-360); RBC DIS.WIDTH-CV 14.1 % (11.8-14.6); RBC DIS.WIDTH-SD 48.4 % (39-53); WHITE BLOOD COUNT 7.1 K/uL (4.1-10.2)
[2018-05-31 06:59] LABS: HEMOGLOBIN 7.2 G/DL (11.9-15.5); RED BLOOD COUNT 2.38 M/uL (3.80-5.20)
[2018-05-31 09:06] LABS: HEMATOCRIT 21.2 % (36.0-46.0); HEMOGLOBIN 7.3 G/DL (11.9-15.5); MCV 92.6 FL (83-99)
[2018-06-01 05:18] VITALS: BP 142/66
[2018-06-01 06:44] LABS: BASOPHIL (%) 0.4 % (0-1); EOSINOPHIL (%) 4.9 % (0-5); EOSINOPHIL COUNT 0.3 K/uL (0-0.3); HEMATOCRIT 25.1 % (36.0-46.0); HEMOGLOBIN 8.7 G/DL (11.9-15.5); IMMATURE GRANULOCYTE (%) 0.5 % (0.0-0.7); LYMPHOCYTE COUNT 1.1 K/uL (1.0-2.8); MCH 31.4 PG (29.0-34.0); MCHC 34.7 G/DL (30.0-36.0); MCV 90.6 FL (83-99); MONOCYTE COUNT 0.5 K/uL (0-0.8); NEUTROPHIL (%) 66.2 % (45-76); NEUTROPHIL COUNT 3.8 K/uL (1.8-6.4); PLATELET COUNT 155 K/uL (156-360); RBC DIS.WIDTH-CV 14.5 % (11.8-14.6); RBC DIS.WIDTH-SD 47.8 % (39-53); RED BLOOD COUNT 2.77 M/uL (3.80-5.20); WHITE BLOOD COUNT 5.7 K/uL (4.1-10.2)
[2018-06-01 07:37] LABS: CHLORIDE 111 MEQ/L (99-109); CREATININE 0.7 MG/DL (0.6-1.3); GFR ESTIMATE (CALCULATED) > 59 mL/min/; GLUCOSE 200 mg/dL (70-99); SODIUM 143 MEQ/L (136-147); UREA NITROGEN (BUN) 5 mg/dL (9-23)
[2018-06-01 07:42] VITALS: BP 148/67
[2018-06-01 11:34] VITALS: BP 116/56
[2018-06-01 15:28] VITALS: BP 161/67
[2018-06-01 17:28] VITALS: BP 151/79
[2018-06-01 19:45] VITALS: BP 138/65
[2018-06-02] VITALS (7 sets, daily range): BP systolic 118–168; BP diastolic 70–79
[2018-06-02 06:00] LABS: BASOPHIL (%) 0.4 % (0-1); EOSINOPHIL (%) 4.6 % (0-5); EOSINOPHIL COUNT 0.2 K/uL (0-0.3); HEMATOCRIT 26.5 % (36.0-46.0); HEMOGLOBIN 8.8 G/DL (11.9-15.5); IMMATURE GRANULOCYTE (%) 0.2 % (0.0-0.7); LYMPHOCYTE (%) 22.7 % (15-42); LYMPHOCYTE COUNT 1.2 K/uL (1.0-2.8); MCH 30.7 PG (29.0-34.0); MCHC 33.2 G/DL (30.0-36.0); MCV 92.3 FL (83-99); MONOCYTE (%) 6.7 % (3-12); MONOCYTE COUNT 0.4 K/uL (0-0.8); NEUTROPHIL (%) 65.4 % (45-76); NEUTROPHIL COUNT 3.4 K/uL (1.8-6.4); PLATELET COUNT 170 K/uL (156-360); RBC DIS.WIDTH-CV 14.3 % (11.8-14.6); RBC DIS.WIDTH-SD 47.8 % (39-53); RED BLOOD COUNT 2.87 M/uL (3.80-5.20); WHITE BLOOD COUNT 5.2 K/uL (4.1-10.2)
[2018-06-02 06:23] LABS: CHLORIDE 110 MEQ/L (99-109); CREATININE 0.7 MG/DL (0.6-1.3); GFR ESTIMATE (CALCULATED) > 59 mL/min/; GLUCOSE 177 mg/dL (70-99); POTASSIUM 3.6 MEQ/L (3.7-5.4); SODIUM 144 MEQ/L (136-147); UREA NITROGEN (BUN) 7 mg/dL (9-23)
[2018-06-03 03:39] VITALS: BP 110/76
[2018-06-03 06:03] LABS: BASOPHIL (%) 0.3 % (0-1); EOSINOPHIL (%) 4.4 % (0-5); EOSINOPHIL COUNT 0.3 K/uL (0-0.3); HEMATOCRIT 27.4 % (36.0-46.0); HEMOGLOBIN 9.2 G/DL (11.9-15.5); IMMATURE GRANULOCYTE (%) 0.3 % (0.0-0.7); LYMPHOCYTE (%) 18.9 % (15-42); LYMPHOCYTE COUNT 1.1 K/uL (1.0-2.8); MCH 31.1 PG (29.0-34.0); MCHC 33.6 G/DL (30.0-36.0); MCV 92.6 FL (83-99); MONOCYTE (%) 5.8 % (3-12); MONOCYTE COUNT 0.3 K/uL (0-0.8); NEUTROPHIL (%) 70.3 % (45-76); PLATELET COUNT 203 K/uL (156-360); RBC DIS.WIDTH-CV 14.4 % (11.8-14.6); RBC DIS.WIDTH-SD 48.4 % (39-53); RED BLOOD COUNT 2.96 M/uL (3.80-5.20); WHITE BLOOD COUNT 5.7 K/uL (4.1-10.2)
[2018-06-03 06:40] LABS: CHLORIDE 109 MEQ/L (99-109); CREATININE 0.8 MG/DL (0.6-1.3); GFR ESTIMATE (CALCULATED) > 59 mL/min/; GLUCOSE 163 mg/dL (70-99); POTASSIUM 3.9 MEQ/L (3.7-5.4); SODIUM 145 MEQ/L (136-147); UREA NITROGEN (BUN) 9 mg/dL (9-23)
[2018-06-03 07:45] VITALS: BP 148/83
[2018-06-03 11:53] VITALS: BP 151/80
[2018-06-03 16:14] VITALS: BP 146/78
[2018-06-03 20:09] VITALS: BP 160/76
[2018-06-04 04:57] VITALS: BP 166/70
[2018-06-04 05:11] VITALS: BP 188/84
[2018-06-04 05:54] LABS: BASOPHIL (%) 0.4 % (0-1); EOSINOPHIL (%) 4.7 % (0-5); EOSINOPHIL COUNT 0.2 K/uL (0-0.3); HEMATOCRIT 28.3 % (36.0-46.0); HEMOGLOBIN 9.3 G/DL (11.9-15.5); IMMATURE GRANULOCYTE (%) 0.6 % (0.0-0.7); LYMPHOCYTE (%) 28.2 % (15-42); LYMPHOCYTE COUNT 1.4 K/uL (1.0-2.8); MCH 30.5 PG (29.0-34.0); MCHC 32.9 G/DL (30.0-36.0); MCV 92.8 FL (83-99); MONOCYTE (%) 6.5 % (3-12); MONOCYTE COUNT 0.3 K/uL (0-0.8); NEUTROPHIL (%) 59.6 % (45-76); PLATELET COUNT 220 K/uL (156-360); RBC DIS.WIDTH-CV 14.4 % (11.8-14.6); RBC DIS.WIDTH-SD 48.2 % (39-53); RED BLOOD COUNT 3.05 M/uL (3.80-5.20); WHITE BLOOD COUNT 5.1 K/uL (4.1-10.2)
[2018-06-04 06:18] LABS: CHLORIDE 107 MEQ/L (99-109); CREATININE 0.8 MG/DL (0.6-1.3); GFR ESTIMATE (CALCULATED) > 59 mL/min/; GLUCOSE 150 mg/dL (70-99); POTASSIUM 3.9 MEQ/L (3.7-5.4); SODIUM 145 MEQ/L (136-147); UREA NITROGEN (BUN) 13 mg/dL (9-23)
[2018-06-04 07:03] VITALS: BP 172/76
[2018-06-04] MEDS ORDERED: AMLODIPINE BESY10 MG PO (10:43)
[2018-06-04] MEDS ORDERED: GLIPIZIDE5 MG PO (10:44)
[2018-06-04] MEDS ORDERED: PERCOCET 5/31 TABLET PO (11:05)
[2018-06-04 11:20] VITALS: BP 142/89
== END 2018-06-04 14:51 | DRG 334 ==
LOC: EME 10:43 → 5SOUTH 14:53 → EDOF 14:53 → ENRESERV 15:04 → 5SOUTH 16:14
PROVIDERS: Emergency Medicine; Hospitalist; Internal Medicine; Physician Assistant Medical
PROC: 0DJD8ZZ Inspection of Lower Intestinal Tract, Via Natural or Artificial Opening Endoscopic (ICD-10-PCS; 2018-05-25)
PROC: 0DTP0ZZ Resection of Rectum, Open Approach (ICD-10-PCS; principal; 2018-05-29)
DX: K62.3 Rectal prolapse (principal); J44.9 Chronic obstructive pulmonary disease, unspecified; K57.30 Diverticulosis of large intestine without perforation or abscess without bleeding; F32.9 Major depressive disorder, single episode, unspecified; K44.9 Diaphragmatic hernia without obstruction or gangrene; K21.9 Gastro-esophageal reflux disease without esophagitis; R33.9 Retention of urine, unspecified; K29.70 Gastritis, unspecified, without bleeding; E78.5 Hyperlipidemia, unspecified; G43.909 Migraine, unspecified, not intractable, without status migrainosus; I10 Essential (primary) hypertension; F03.90 Unspecified dementia, unspecified severity, without behavioral disturbance, psychotic disturbance, mood disturbance, and anxiety; E87.6 Hypokalemia; E03.9 Hypothyroidism, unspecified; F17.200 Nicotine dependence, unspecified, uncomplicated; K59.00 Constipation, unspecified; E11.9 Type 2 diabetes mellitus without complications; G25.81 Restless legs syndrome; M81.0 Age-related osteoporosis without current pathological fracture; D64.9 Anemia, unspecified; Z86.73 Personal history of transient ischemic attack (TIA), and cerebral infarction without residual deficits; Z87.441 Personal history of nephrotic syndrome; Z91.14 Patient's other noncompliance with medication regimen; Z90.710 Acquired absence of both cervix and uterus; Z79.899 Other long term (current) drug therapy; Z79.82 Long term (current) use of aspirin
CPT/HCPCS: 74176; 74177; 80048; 80053; 82948; 83036; 85014; 85018; 85025; 85027; 85610; 85730; 86850; 86900; 86901; 86920; 88305; 93971; 97530 GO; 97530 GP; 99281; 99285; J0330; J0360; J1100; J1170; J1644; J1650; J1815; J1885; J2405; J3010; J3480; J7030; P9016; S0074

== ENCOUNTER 2018-06-15 11:03 | Observation (INO) | payer OTHER ==
[~2018-06-15] VITALS: Ht 149.9 cm; Wt 61.5 kg
[~2018-06-15 11:03] MED LIST changes: +ADVIL200 MG PO; +AMLODIPINE BESY10 MG PO; +DUREZOL 0.100 DROP/5 LEFT EYE; +GLIPIZIDE5 MG PO; +LANTUS 10100 UNITS/ SC; -LEVO-T100 MCG PO; +LEVO-T75 MCG PO; +PROAIR RESPICL90 MCG IH; +REMERON15 M2 PO; +RHOPRESSA2.5 ML LEFT EYE; +TYLENOL325 M2 PO
[2018-06-15 11:39] LABS: HEMATOCRIT 33.4 % (36.0-46.0); HEMOGLOBIN 10.8 G/DL (11.9-15.5); MCH 30.9 PG (29.0-34.0); MCHC 32.3 G/DL (30.0-36.0); MCV 95.7 FL (83-99); RBC DIS.WIDTH-CV 14.6 % (11.8-14.6); RBC DIS.WIDTH-SD 50.4 % (39-53); RED BLOOD COUNT 3.49 M/uL (3.80-5.20); WHITE BLOOD COUNT 7.1 K/uL (4.1-10.2)
[2018-06-15 11:44] LABS: PLATELET COUNT 281 K/uL (156-360)
[2018-06-15 11:52] LABS: CHLORIDE 111 mEq/L (99-109); POTASSIUM 4.8 mEq/L (3.7-5.4); SODIUM 143 mEq/L (136-147)
[2018-06-15 11:53] LABS: GLUCOSE 108 mg/dL (70-99)
[2018-06-15 11:57] LABS: CREATININE 1.3 mg/dL (0.6-1.3); GFR ESTIMATE (CALCULATED) 42 mL/min/
[2018-06-15 11:58] LABS: UREA NITROGEN (BUN) 22 mg/dL (9-23)
[2018-06-15 12:21] LABS: ALBUMIN 3.9 g/dL (3.2-4.8)
[2018-06-15 12:24] LABS: TOTAL PROTEIN 7.2 g/dL (6.4-8.3)
[2018-06-15 12:25] LABS: PTT 27.8 SEC (25-37)
[2018-06-15 12:26] LABS: TOTAL BILIRUBIN 0.3 mg/dL (0.0-1.0)
[2018-06-15 12:27] LABS: ALKALINE PHOSPHATASE 52 IU/L (3-129)
[2018-06-15 12:29] LABS: AST (GOT) 23 IU/L (2-34); DIRECT BILIRUBIN 0.2 mg/dL (0.0-0.3)
[2018-06-15 12:30] LABS: ALT (GPT) 15 IU/L (3-49); LIPASE 26 U/L (1.0-51.0)
[2018-06-15] MEDS ORDERED: METFORMIN HCL1000 MG PO (18:51)
[2018-06-15] MEDS ORDERED: HUMALOG100 UNIT/2 SC (18:55)
[2018-06-15 20:48] VITALS: BP 117/58
[2018-06-15 23:41] VITALS: BP 134/112
[2018-06-16 00:29] LABS: HEMATOCRIT 31.9 % (36.0-46.0); HEMOGLOBIN 10.4 G/DL (11.9-15.5); MCV 96.4 FL (83-99)
[2018-06-16 03:38] VITALS: BP 146/67
[2018-06-16 05:43] LABS: HEMATOCRIT 29.6 % (36.0-46.0); HEMOGLOBIN 9.6 G/DL (11.9-15.5); MCV 95.2 FL (83-99)
[2018-06-16 06:16] LABS: CHLORIDE 113 MEQ/L (99-109); GLUCOSE 129 mg/dL (70-99); SODIUM 143 MEQ/L (136-147); UREA NITROGEN (BUN) 12 mg/dL (9-23)
[2018-06-16 06:48] LABS: CREATININE 0.8 MG/DL (0.6-1.3); GFR ESTIMATE (CALCULATED) > 59 mL/min/; POTASSIUM 3.8 MEQ/L (3.7-5.4)
[2018-06-16 07:10] LABS: APPEARANCE CLEAR ((CLEAR)); BILIRUBIN NEGATIVE; BLOOD NEGATIVE; COLOR YELLOW ((YELLOW)); GLUCOSE (STRIP) NEGATIVE; KETONES NEGATIVE; LEUKOCYTES TRACE; NITRITE NEGATIVE; PROTEIN (STRIP) NEGATIVE; SPECIFIC GRAVITY 1.016 (1.000-1.030); UROBILINOGEN 0.2 MG/DL (0.2-1.0)
[2018-06-16 07:17] LABS: BACTERIA RARE /HPF; EPITHELIAL CELLS RARE /HPF; MUCUS NONE SEEN /LPF; RED BLOOD CELLS 0-5 /HPF (0-5); UCUL ADDED? YES
[2018-06-16 07:35] VITALS: BP 135/62
[2018-06-16] MEDS ORDERED: AMLODIPINE BESY10 MG PO (12:49)
[2018-06-16 15:03] LABS: HEMATOCRIT 33.2 % (36.0-46.0); HEMOGLOBIN 10.8 G/DL (11.9-15.5); MCV 95.1 FL (83-99)
== END 2018-06-16 15:36 | disposition home or self-care (01) ==
LOC: EME 11:03 → EDOF 18:28 → 4SOUTH 18:28 → ENRESERV 19:30 → 4SOUTH 20:43 → ENPENDDIS 06-16 13:54 → 4SOUTH 06-16 15:36
PROVIDERS: Emergency Medicine; Hospitalist; Physician Assistant Medical
PROC: 0DB68ZX Excision of Stomach, Via Natural or Artificial Opening Endoscopic, Diagnostic (ICD-10-PCS; principal; 2018-06-16)
DX: K62.5 Hemorrhage of anus and rectum (principal); K29.70 Gastritis, unspecified, without bleeding; K57.30 Diverticulosis of large intestine without perforation or abscess without bleeding; D64.9 Anemia, unspecified; K62.3 Rectal prolapse; Z98.890 Other specified postprocedural states; R60.0 Localized edema; I10 Essential (primary) hypertension; E78.5 Hyperlipidemia, unspecified; E11.9 Type 2 diabetes mellitus without complications; Z86.73 Personal history of transient ischemic attack (TIA), and cerebral infarction without residual deficits; J44.9 Chronic obstructive pulmonary disease, unspecified; G25.81 Restless legs syndrome; G50.0 Trigeminal neuralgia; G43.809 Other migraine, not intractable, without status migrainosus; Z90.710 Acquired absence of both cervix and uterus; Z90.49 Acquired absence of other specified parts of digestive tract; Z98.49 Cataract extraction status, unspecified eye; Z82.49 Family history of ischemic heart disease and other diseases of the circulatory system; Z88.8 Allergy status to other drugs, medicaments and biological substances; Z88.1 Allergy status to other antibiotic agents
CPT/HCPCS: 70450; 74177; 80048; 80076; 81003; 82948; 83605; 83690; 85014; 85018; 85027; 85610; 85730; 86850; 86900; 86901; 87077; 87086; 87186; 88305; 88342 TC; 93971; 99281; 99285; C9113; G0378; J1200; J1815; J2405; J2765; J7030; J7042